=== PATIENT | female | born 1990 | race Caucasian/White ===

== ENCOUNTER 2019-01-29 09:19 | Emergency (ER) | payer SELFPAY ==
[~2019-01-29] VITALS: Ht 160 cm; Wt 82.6 kg
[2019-01-29 09:35] VITALS: BP 116/54
--- NOTE | 2019-01-29 09:41 | NUR ---
pt ambulated to er bed 06
--- NOTE | 2019-01-29 09:42 | NUR ---
BIB SELF FROM [facility] WITH C/O INTERMITENT,NON RADIATING MID ABDOMINAL PAIN X 3 DAYS. AND N/V X 1 WK. LAST VOMITED YESTERDAY. HX; GASTRIC BYPASS, GALL BLADDER REMOVAL, HYPOTHYROID, CRYTAL METH; LAST USED 1 WEEK AGO.RX; NOT TAKING. AAOX4 WITH EVEN AND STEADY GAIT; PATIENT STATES PAIN OF 0/10 AT THIS TIME.PATIENT POSITIONED FOR COMFORT; HOB ELEVATED; BEDRAILS UP X2; BED DOWN. ER MD MADE AWARE OF PT STATUS.
[2019-01-29] MEDS ORDERED: cefTRIAXone 1,000 MG in LIDOCAINE 1% ***ER ONLY *** 2.1 ML IM ONE (10:25)
[2019-01-29] MEDS ORDERED: KETOROLAC 60 MG/2 ML VIAL IM ONE (10:25)
[2019-01-29] MEDS ORDERED: cefTRIAXone 1,000 MG VIAL ONE (11:12)
--- NOTE | 2019-01-29 11:19 | NUR ---
IM MEDS GIVEN-NADR AT THIS TIME
[2019-01-29 11:36] VITALS: BP 110/71
--- NOTE | 2019-01-29 11:37 | NUR ---
Patient discharged with v/s stable. Written and verbal after care instructions given and explained. Patient alert, oriented and verbalized understanding of instructions. Ambulatory with steady gait. All questions addressed prior to discharge. ID band removed. Patient advised to follow up with PMD. Rx of LEVAQUIN 250MG given. Patient educated on indication of medication including possible reaction and side effects. Opportunity to ask questions provided and answered.
--- NOTE | 2019-01-29 11:40 | NUR ---
HOMELESS PATIENT WAIVER FORM SIGNATURE AND INFO GIVEN TO PT WITH LUNCH AND PERSONAL HYGIENE BAG GIVEN
--- NOTE | 2019-01-29 11:44 | NUR ---
PT REFUSED BUS PASS STS " I CAN CALL SOMEONE TO PICK ME UP."
== END 2019-01-29 11:37 | disposition home or self-care (01) ==
LOC: MED 09:19
DX: R10.9 Unspecified abdominal pain (principal); R11.10 Vomiting, unspecified; M54.5 Low back pain; Z98.890 Other specified postprocedural states
CPT/HCPCS: 81002; 81025; 96372; 99283; J0696; J1885; J2001

== ENCOUNTER 2019-01-30 19:49 | Emergency (ER) | payer SELFPAY ==
[~2019-01-30] VITALS: Ht 160 cm; Wt 81.6 kg
[2019-01-30 19:55] VITALS: BP 133/76
--- NOTE | 2019-01-30 19:59 | NUR ---
PT PROVIDING URINE AND AMBULATING TO BED 1 WITH VSS.
[2019-01-30] MEDS ORDERED: KETOROLAC 30 MG/ML VIAL IM ONE (20:20)
--- NOTE | 2019-01-30 21:00 | NUR ---
PT BIB SELF C/O CHEST PAIN AND HAND NUMBNESS. PT STATES SUDDEN ONSET OF MID STERNAL CHEST PAIN AND HAND NUMBNESS X2 HOURS. PT STATES SHE IS 8 DAYS SOBER FROM CRYSTAL METH. PT STATES TO CHECKING INTO A REHAB FACILITY VOLUNTERALLY. --DENIES N/V/D. BL HAND STRENGTH STRONG, WNL. BREATHING EQUAL AND UNLABORED. LUNG SOUNDS CLEAR BL. BOWEL SOUNDS ACTIVE X4 QUAD. AAOX4. PMH: THRYOID, GASTRIC BYPASS IN 2016 RX: LEVOTHYROXIN (BUT HASNT TAKEN IN OVER A YEAR)
--- NOTE | 2019-01-30 21:19 | NUR ---
X-RAY AT BEDSIDE.
--- NOTE | 2019-01-30 22:10 | NUR ---
Patient discharged with v/s stable. Written and verbal after care instructions given and explained. Patient verbalized understanding. Ambulatory with steady gait. All questions addressed prior to discharge. Advised to follow up with PMD.
[2019-01-30 22:20] VITALS: BP 104/66
== END 2019-01-30 22:10 | disposition home or self-care (01) ==
LOC: MED 19:49
DX: R07.9 Chest pain, unspecified (principal); R20.0 Anesthesia of skin
CPT/HCPCS: 71045; 81002; 81025; 96372; 99283; J1885; Q0092; Q0163; 93005

== ENCOUNTER 2021-10-11 17:51 | Emergency (ER) | payer MEDICAID ==
[~2021-10-11] VITALS: Ht 160 cm; Wt 104.3 kg
[2021-10-11 18:06] VITALS: BP 115/66
--- NOTE | 2021-10-11 18:17 | NUR ---
MARIA GUADALUPE. HANDED ON URINE CUP.
== END 2021-10-11 20:16 | disposition left against medical advice (07) ==
LOC: MED 17:51
DX: R51.9 Headache, unspecified (principal); R42 Dizziness and giddiness; R53.1 Weakness; R06.00 Dyspnea, unspecified; Z53.21 Procedure and treatment not carried out due to patient leaving prior to being seen by health care provider
CPT/HCPCS: 81002; 81025

== ENCOUNTER 2022-10-14 18:05 | Emergency (ER) | payer MEDICAID ==
[~2022-10-14] VITALS: Ht 160 cm; Wt 97.1 kg
--- NOTE | 2022-10-14 18:48 | NUR ---
Patient ambulated to bed 03 with steady/even gait
[2022-10-14] MEDS ORDERED: ACETAMINOPHEN 325 MG TAB PO ONE (19:00)
[2022-10-14] MEDS ORDERED: NACL 0.9% 1,000 ML IV SCH (19:00)
--- NOTE | 2022-10-14 19:30 | NUR ---
ASSUMED CARE AT THIS TIME. PT A&O X4. pt c/o of back pain and abdominal pain with nausea and vomitting.
[2022-10-14 19:32] LABS: BASOPHILS # (AUTO) 0.1 K/uL (0.00-0.22); BASOPHILS % (AUTO) 0.9 % (0.0-2.0); EOSINOPHILS # (AUTO) 0.3 K/uL (0-0.4); EOSINOPHILS % (AUTO) 3.8 % (0.0-4.0); HEMATOCRIT 43.7 % (36-48); HEMOGLOBIN 14.9 g/dL (12.0-16.0); LYMPHOCYTES # (AUTO) 3.1 K/uL (2.5-16.5); LYMPHOCYTES % (AUTO) 41.2 % (20.5-51.1); MEAN CORPUSCULAR HEMOGLOBIN 30 pg (27-31); MEAN CORPUSCULAR HGB CONC 34 g/dL (33-37); MEAN CORPUSCULAR VOLUME 87.5 fL (80-94); MONOCYTES # (AUTO) 0.5 K/uL (0.8-1.0); NEUTROPHILS # (AUTO) 3.7 K/uL (1.8-7.7); NEUTROPHILS % (AUTO) 48.1 % (42.2-75.2); PLATELET COUNT (AUTO) 269 K/uL (140-450); RED BLOOD CELL COUNT(AUTO) 4.99 MIL/uL (4.20-5.40); RED CELL DISTRIBUTION WIDTH 15.7 % (11.6-13.7); WHITE BLOOD COUNT (AUTO) 7.6 K/uL (4.8-10.8)
[2022-10-14 19:46] LABS: ALBUMIN 3.6 g/dL (3.4-5.0); ANION GAP 13.2 (8-16); CARBON DIOXIDE 27.3 mmol/L (21-32); CREATININE 0.9 mg/dL (0.6-1.3); POTASSIUM 3.5 mmol/L (3.5-5.1); TOTAL BILIRUBIN 0.8 mg/dL (0.0-1.0)
[2022-10-14 19:57] LABS: FREE T4 (FREE THYROXINE) 0.7 ng/dL (0.76-1.46); THYROID STIMULATING HORMONE 0.18 uIU/mL (0.34-3.74)
[2022-10-14 20:19] LABS: APPEARANCE,URINE SL CLOUDY (CLEAR); BILIRUBIN,URINE NEGATIVE (NEGATIVE); BLOOD, URINE TRACE-I (NEGATIVE); COLOR,URINE YELLOW (YELLOW); LEUKOCYTE ESTERASE ,URINE TRACE (NEGATIVE); NITRITE, URINE NEGATIVE (NEGATIVE); UGLUCOSE NEGATIVE (NEGATIVE)
[2022-10-14 20:35] LABS: OTHER CASTS, URINE None Seen /LPF (None Seen)
--- NOTE | 2022-10-14 21:06 | NUR ---
PT RETURN FROM CT
[2022-10-14] MEDS ORDERED: KETOROLAC 15 MG/ML VIAL IVP ONE (21:55)
[2022-10-14] MEDS ORDERED: CIPR500T4 PO (22:22)
== END 2022-10-14 22:56 | disposition home or self-care (01) ==
LOC: MED 18:05
DX: N12 Tubulo-interstitial nephritis, not specified as acute or chronic (principal); R53.1 Weakness; E03.9 Hypothyroidism, unspecified
CPT/HCPCS: 36415; 74176; 80053; 81001; 81025; 83690; 84439; 84443; 85025; 87086; 93005; 96374; 99285; J1885

== ENCOUNTER 2022-11-23 19:22 | Emergency (ER) | payer MEDICAID ==
[~2022-11-23] VITALS: Ht 160 cm; Wt 93.0 kg
[~2022-11-23 19:22] MED LIST: CIPR500T4 PO
[2022-11-23 19:30] VITALS: BP 120/73
--- NOTE | 2022-11-23 19:30 | NUR ---
SEEN AND EXAMINED BY PA TO LIVIA SANTANA
[2022-11-23] MEDS ORDERED: IBUP-2213 PO (19:33)
[2022-11-23] MEDS ORDERED: AMOX-999 PO (19:33)
[2022-11-23] MEDS ORDERED: KETOROLAC 30 MG/ML VIAL IM ONE (19:35)
== END 2022-11-23 19:47 | disposition home or self-care (01) ==
LOC: MED 19:22
DX: H66.93 Otitis media, unspecified, bilateral (principal); E03.9 Hypothyroidism, unspecified
CPT/HCPCS: 96372; 99283; J1885